=== PATIENT | female | born 2000 | race Caucasian/White ===

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

== ENCOUNTER 2020-10-30 14:05 | Emergency (ER) | payer OTHER ==
[~2020-10-30 14:05] MED LIST: KEFLEX CAP 500500 MG PO; LABETALOL HCL200 MG PO
== END 2020-10-30 16:01 | disposition left against medical advice (07) ==
LOC: ER1 14:05
DX: R11.10 Vomiting, unspecified (principal); R19.7 Diarrhea, unspecified; R05 Cough; R51.9 Headache, unspecified; Z53.21 Procedure and treatment not carried out due to patient leaving prior to being seen by health care provider

== ENCOUNTER 2022-02-15 15:27 | Emergency (ER) | payer OTHER | END 2022-02-15 18:15 | disposition home or self-care (01) | LOC: ER1 15:27 | DX: R22.0 Localized swelling, mass and lump, head (principal); F17.210 Nicotine dependence, cigarettes, uncomplicated; V43.52XA Car driver injured in collision with other type car in traffic accident, initial encounter; W22.10XA Striking against or struck by unspecified automobile airbag, initial encounter; Y92.410 Unspecified street and highway as the place of occurrence of the external cause | CPT/HCPCS: 70450; 70486; 71045; 72125; 73502; 99284 ==